=== PATIENT | female | born 1980 | race Caucasian/White ===

== ENCOUNTER → 2022-02-11 | Outpatient (CLI) | payer OTHER, SELFPAY ==
[2022-02-11 08:38] LABS: Absolute Lymphocyte Count 1.32 X10^3/uL (0.83-4.51); Absolute Neutrophil Count 7.2 X10^3/uL (2.0-7.7); Eosinophil# 0.89 X10^3/uL; Hematocrit 37.9 % (37-47); Hemoglobin 12.5 g/dL (12.0-15.0); Lymphocyte # 1.32 X10^3/ul (0.83-4.51); Lymphocyte % 13.4 % (19-41); Mean Corpuscular Hgb 27.4 pg (27.0-32.0); Mean Corpuscular Volume 83.1 fL (81-99); Mean Platelet Vol. 10.4 fl (6.2-12.0); Monocyte# 0.35 X10^3/uL; Monocyte% 3.5 % (0-10); NRBC Flagged by Analyzer 0 % (0-5); Neutrophil # 7.16 X10^3/uL (2.7-7.7); Neutrophil % 72.6 % (47-70); Platelet Count 354 K/mm3 (150-450); RBC Distribution Width CV 15.4 % (11.6-14.6); RBC Distribution Width SD 47.1 fl (35.1-43.9); Red Blood Count 4.56 M/mm3 (4.2-5.4); White Blood Count 9.9 K/mm3 (4.4-11.0)
[2022-02-18 08:10] LABS: Alternaria tenuis <0.10 kU/L (Class 0); Ash, White <0.10 kU/L (Class 0); Aspergillus fumigatus <0.10 kU/L (Class 0); Bermuda Grass <0.10 kU/L (Class 0); Birch <0.10 kU/L (Class 0); Black Walnut <0.10 kU/L (Class 0); Cat Hair / Dander,Stand <0.10 kU/L (Class 0); Cedar, Mountain <0.10 kU/L (Class 0); Cladosporium herbarum <0.10 kU/L (Class 0); Cockroach, American <0.10 kU/L (Class 0); Cottonwood <0.10 kU/L (Class 0); D farinae Mite <0.10 kU/L (Class 0); D pteronyssinus <0.10 kU/L (Class 0); Dog Epithelia <0.10 kU/L (Class 0); Elm, American White <0.10 kU/L (Class 0); Immunoglobulin E 149 IU/mL (6-495); Maple/Box Elder <0.10 kU/L (Class 0); Mulberry, White <0.10 kU/L (Class 0); Oak, White <0.10 kU/L (Class 0); Pecan <0.10 kU/L (Class 0); Penicillium Notatum <0.10 kU/L (Class 0); Pigweed, Rough <0.10 kU/L (Class 0); Ragweed, Short/Common <0.10 kU/L (Class 0); Russian Thistle <0.10 kU/L (Class 0); Sheep Sorrel <0.10 kU/L (Class 0); Sycamore, American <0.10 kU/L (Class 0); Timothy Grass <0.10 kU/L (Class 0)
[2022-02-18 08:25] LABS: Mouse Urine <0.10 kU/L (Class 0)
[2022-02-21 15:08] LABS: Aspirgillus flavus Negative (Neg:<1:1); Aspirgillus fumigatus Negative (Neg:<1:1); Aspirgillus niger Negative (Neg:<1:1); Cytoplasmic Ab (C-ANCA) <1:20 titer (Neg:<1:20)
[2022-02-22 08:37] LABS: Immunoglobulin E 162 IU/mL (6-495)
== END | disposition home or self-care (01) ==
PROVIDERS: PCP Nurse Practitioner; Referring Provider Internal Medicine Critical Care Medicine; Visit Provider Internal Medicine Critical Care Medicine
DX: J45.909 Unspecified asthma, uncomplicated (principal)
CPT/HCPCS: 36415; 82785; 85025; 86003; 86256; 86606

== ENCOUNTER → 2022-03-02 | Outpatient (CLI) | payer SELFPAY, OTHER ==
--- NOTE | 2022-03-03 08:15 | PFT ---
INTRODUCTION: The patient is a 41-year-old female that presents for pulmonary function studies secondary to a diagnosis of asthma. Respiratory therapy reported good patient effort. Bronchodilators were used during testing. INTERPRETATION: Forced expiration spirometry demonstrates the presence of a moderately severe large airways obstructive ventilatory defect. There is no significant response to aerosolized bronchodilators. Spirograms are of good quality but do not plateau indicating slow emptying of the lungs. Body plethysmography was performed and revealed a decreased TLC to 3.58 L, 77% of predicted, indicative of a mild restrictive ventilatory impairment. Diffusing capacity by single breath CO is within normal limits. IMPRESSION: Irreversible moderately severe large mixed ventilatory defect with preserved diffusing capacity.
== END | disposition home or self-care (01) ==
LOC: PSN 12:56
PROVIDERS: PCP Nurse Practitioner; Referring Provider Internal Medicine Critical Care Medicine; Visit Provider Internal Medicine Critical Care Medicine
DX: J45.909 Unspecified asthma, uncomplicated (principal)
CPT/HCPCS: 94060; 94726; 94729

== ENCOUNTER 2024-09-08 09:57 | Emergency (ER) | payer OTHER, SELFPAY ==
[2024-09-08 09:58] VITALS: BP 161/73; PULSE 103; RESP 18; TEMP 37.2; O2SAT 98; BMI 30.2
--- NOTE | 2024-09-08 10:13 | EX.ED.DYSGE1 ---
HPI History of Present Illness Chief Complaint: Hypertension Informant: patient Onset/Context/Timing Onset: Month(s) Context: Gradual Onset Timing: Continuous Worsened by: Nothing Relieved by: Nothing Narrative Narrative: Patient presents with elevated blood pressure that was noticed today. Patient states that 3 months ago her blood pressure was noted to be mildly elevated in the 150s. Patient states that when she was at her pulmonology appointment today her blood pressure was elevated into the 170s. Patient states she has had a recent cough but has not taken any [id number] decongestants. Patient states she did take her inhaler this morning at approximately 7:30 AM. (This was approximately 2-1/2 hours prior to arrival to the emergency department.) patient denies any chest pain or shortness of breath. Patient denies any nausea or vomiting. Patient does admit to a mild headache. [facility] Medical History (Updated 09/08/24 @ 11:[address] Jameson Simon, DO) Nasal polyps Diabetes Home Medications ?Medication ?Instructions ?Recorded ?Last Taken ?Type albuterol sulfate 2.5 mg/3 mL 2.5 mg (3 mL) inhalation Q4H PRN 02/11/22 Unknown Rx (0.083 %) solution for nebulization shortness of breath or wheezing #180 mL albuterol sulfate 90 mcg/actuation gm inhalation 02/11/22 Unknown History aerosol inhaler insulin lispro 100 unit/mL 25 - 35 unit subcut TID 02/11/22 Unknown History subcutaneous pen (Humalog KwikPen (U-100) Insulin) ipratropium 0.5 mg-albuterol 3 mg 3 ml continuous nebulization Q6H 02/11/22 Unknown History (2.5 mg base)/3 mL nebulization PRN soln albuterol sulfate 90 mcg/actuation 2 puff inhalation Q4H PRN 09/08/23 Unknown Rx aerosol inhaler shortness of breath or wheezing #8.5 grams budesonide-formoterol HFA 160 2 puff inhalation BID #10.2 grams 09/08/23 Unknown Rx mcg-4.5 mcg/actuation aerosol inhaler Allergy/AdvReac Type Severity Reaction Status Date / Time Penicillins Allergy Severe Anaphylaxis Verified 09/08/24 09:58 /Hives Family History Brother Diabetes Grandfather Asthma Surgical History (Updated 09/08/24 @ 10:[address] Jameson Simon DO) Hx of nasal polypectomy Social History Smoking Status: Never smoker Electronic Cigarette Use: not used alcohol intake: never substance use type: does not use ROS ROS ED Constitutional Constitutional ED: Denies chills or fever(s) Eyes Eyes: Denies blurry vision or change in vision ENT ENT ED: Reports sore throat; Denies rhinorrhea Cardiovascular Cardiovascular: Denies chest pain or palpitations Respiratory/Chest Respiratory/Chest: Reports cough; Denies dyspnea Gastrointestinal Gastrointestinal: Denies nausea or vomiting Genitourinary Genitourinary ED: Denies dysuria or hematuria Musculoskeletal Musculoskeletal: Denies back pain or neck pain Integumentary Denies abscess or rash Neurologic Neurologic: Reports headache(s); Denies weakness Allergic/Immunologic Allergic/Immunologic ED: Denies mouth swelling or urticaria EXAM Physical Exam Const Vital Signs: 09/08/24 09:58 09/08/24 09:58 09/08/24 11:30 Temperature 98.9 F Temperature Source Oral Pulse Rate 103 H 87 Respiratory Rate 18 18 Respiratory Pattern Normal Blood Pressure 161/73 H 163/62 H Blood Pressure Mean 102 95 Pulse Ox 98 95 Oxygen Delivery Method Room Air Room Air 09/08/24 11:41 Temperature 98.7 F Temperature Source Pulse Rate 89 Respiratory Rate 16 Respiratory Pattern Blood Pressure 152/96 H Blood Pressure Mean 114 Pulse Ox 99 Oxygen Delivery Method Positive well nourished and well developed General Appearance ED: well developed and NAD HEENT Reports moist mucous membranes Neck supple and no JVD Resp normal respiratory effort and clear to auscultation bilaterally Cardio regular rate and regular rhythm GI non-tender and non-distended Palpation: soft Neuro oriented x3, CN's II-XII intact bilaterally and no sensory deficits noted Sensorium / Orientation: alert Motor Exam: strength 5/5 throughout Psych mental status grossly normal MDM MDM MDM Narrative Medical decision making narrative: Differential diagnosis includes hypertension, hypertensive urgency, hypertensive emergency, medication side effect, cardiac dysrhythmia, cardiac ischemia, electrolyte abnormality, and anxiety. EKG will be obtained to assess for cardiac dysrhythmia and cardiac ischemia. Chest x-ray will be obtained to assess for pneumonia and widened mediastinum. CBC will be obtained to assess for leukocytosis and anemia. Basic metabolic profile will be obtained to assess for electrolyte abnormality and renal function. High-sensitivity troponin will be obtained to assess for cardiac ischemia. Lab Data Attestation: I reviewed the patient's lab results. Lab results narrative: CBC was reviewed and was within normal limits. Basic metabolic profile was reviewed. Glucose was elevated at 280. The remainder is within normal limits. High-sensitivity troponin was reviewed and was less than 3. Labs: Laboratory Results - last 24 hr 09/08/24 10:45 WBC 8.0 RBC 4.79 Hgb 13.3 Hct 40.3 MCV 84.1 MCH 27.8 MCHC 33.0 RDW Std Deviation 42.4 RDW Coeff of Lonny 13.8 Plt Count 332 MPV 11.2 Immature Gran % (Auto) 0.400 Neut % (Auto) 71.6 H Lymph % (Auto) 11.5 L [place] % (Auto) 4.9 Eos % (Auto) 10.5 H Baso % (Auto) 1.1 H Absolute Neuts (auto) 5.8 Absolute Lymphs (auto) 0.92 Nucleated RBC % 0 Sodium 135 L Potassium 3.5 Chloride 105 Carbon Dioxide 24.0 Anion Gap 6 BUN 6 L Creatinine 0.83 Estim Creat Clear Calc 80.31 Est GFR (MDRD) Af Amer 95 Est GFR (MDRD) Non-Af 78 BUN/Creatinine Ratio 7.2 L Glucose 280 H Calcium 9.0 Troponin I High Sens < 3 L Radiography Chest X-Ray - ED: 2 View, Read by ED Physician, Read by Radiologist and No Acute Disease Diagnostic Testing: Clinical Impression(s) from Imaging Studies Chest X-Ray 09/08/24 10:58 IMPRESSION: Normal x-ray examination of the chest. Electronically Signed: Drew Jain MD at 11:09 EST , PA and lateral chest x-ray was obtained. There are 2 views. On my independent interpretation, lung zuniga are clear. There is normal cardiac silhouette. Bony thorax is normal. There is no acute process noted. Radiologist also interpreted the x-ray and agrees. EKG Initial EKG: Attestation: I personally reviewed and interpreted this EKG as follows: Interpretation: Sinus Rhythm (92) and No Acute Injury Pattern Comments: EKG was obtained. On my independent interpretation, it showed a normal sinus rhythm with a rate of 92. TN interval, QRS interval, and QTc intervals were all normal. [place] was normal. There are no acute ST or T wave changes. Prior EKG tracings: not available for review Prior: No Prior Treatment and Re-Evaluation :: Patient's blood pressure appears to be improving. Therefore, I will hold off on any antihypertensives at this time. Patient was advised of her findings. Patient advised that she does not have a hypertensive urgency or hypertensive emergency at this time. She does have mildly elevated blood pressure. Repeat blood pressure was 163/86. Patient was instructed to keep a log of her blood pressures at home. Patient was instructed to follow-up with her primary care physician in 3 to 5 days. Patient was instructed to return if worse in any way. Patient understood and was agreeable with the plan. All questions were answered. Discharge Plan Triage Chief Complaint: Hypertension ED Provider: Jameson Simon Dx/Rx/DC Orders Clinical Impression: Hypertension, Diabetes Instructions: ED Hypertension, To Be Confirmed Prescriptions: No Action albuterol sulfate 90 mcg/actuation HFA aerosol inhaler inhalation Patient Comments: Inhale TWO puffs every FOUR hours NEEDED for SHORTNESS OF BREATH ipratropium-albuterol 0.5 mg-3 mg(2.5 mg base)/3 mL solution for nebulization 3 ml continuous nebulization Q6H PRN Patient Comments: inhale ONE vial PER nebulizer FOUR TIMES DAILY insulin lispro [Humalog KwikPen Insulin] 100 unit/mL insulin pen 25 - 35 unit subcut TID albuterol sulfate 2.5 mg /3 mL (0.083 %) solution for nebulization 2.5 mg inhalation Q4H PRN (Reason: shortness of breath or wheezing) Qty: 180 3RF budesonide-formoterol 160-4.5 mcg/actuation HFA aerosol inhaler 2 puff inhalation BID Qty: 10.2 11RF albuterol sulfate 90 mcg/actuation HFA aerosol inhaler 2 puff inhalation Q4H PRN (Reason: shortness of breath or wheezing) Qty: 8.5 6RF Rx Instructions: administer with spacer Primary Care Provider: Siobhan Juarez NP Referrals: Siobhan Juarez NP, [facility]IOLOG[facility] [Primary Care Provider] - 3-5 Days Activity Restrictions/Additional Instructions: Take your blood pressure twice daily (in the morning and in the evening). Keep a log of these blood pressures and take them to your primary care physician. If your blood pressures remain elevated, you may need to be started on antihypertensive medication. Print Language: Swedish Disposition Disposition: Home, Self Care Discharge Date/Time: 09/08/24 11:42
--- NOTE | 2024-09-08 10:33 | EKG12_ITS ---
Test Reason : BACK PAIN Blood Pressure : */* mmHG Vent. Rate : 92 BPM Atrial Rate : 92 BPM P-R Int : 132 ms QRS Dur : 74 ms QT Int : 354 ms P-R-T Axes : 62 24 52 degrees QTcB Int : 437 ms Normal sinus rhythm Normal ECG Confirmed by ANDREY FU, DANNA ([id number]), book or script editor CAMILO MCCARTHY ([id number]) on 09/11/2024 6:34:28 AM Referred By: Confirmed By: DANNA BALDERAS MD
[2024-09-08 10:58] LABS: Absolute Lymphocyte Count 0.92 X10^3/uL (0.83-4.51); Absolute Neutrophil Count 5.8 X10^3/uL (2.0-7.7); Basophil# 0.09 X10^3/uL; Basophil% 1.1 % (0-1); Eosinophil# 0.84 X10^3/uL; Eosinophils% 10.5 % (0-5); Hematocrit 40.3 % (37-47); Hemoglobin 13.3 g/dL (12.0-15.0); Lymphocyte # 0.92 X10^3/ul (0.83-4.51); Lymphocyte % 11.5 % (19-41); Mean Corpuscular Hgb 27.8 pg (27.0-32.0); Mean Corpuscular Volume 84.1 fL (81-99); Mean Platelet Vol. 11.2 fl (6.2-12.0); Monocyte# 0.39 X10^3/uL; Monocyte% 4.9 % (0-10); NRBC Flagged by Analyzer 0 % (0-5); Neutrophil # 5.76 X10^3/uL (2.7-7.7); Neutrophil % 71.6 % (47-70); Platelet Count 332 K/mm3 (150-450); RBC Distribution Width CV 13.8 % (11.6-14.6); RBC Distribution Width SD 42.4 fl (35.1-43.9); Red Blood Count 4.79 M/mm3 (4.2-5.4)
--- NOTE | 2024-09-08 10:58 | RAD_ITS ---
STUDY: X-RAY CHEST REASON FOR EXAM: Female, 44 years old. Hypertension TECHNIQUE: PA and lateral views of the chest. COMPARISON: None. FINDINGS: The lungs are clear and expanded. There is no demonstrated pleural abnormality. Normal size heart. Normal mediastinum and jack. Normal visualized pulmonary arteries. Normal visualized aortic arch and descending thoracic aorta. Normal visualized thoracic spine. Normal visualized ribs, clavicles, and shoulders. There is no demonstrated abnormality of the visualized soft tissue structures of the upper abdomen. RAD/Chest PA and Lateral IMPRESSION: Normal x-ray examination of the chest. Electronically Signed: Drew Jain MD at 11:09 [facility] ,
[2024-09-08 11:17] LABS: Anion Gap 6 (5-15); BUN 6 mg/dL (7-18); BUN/Creat Ratio 7.2 RATIO (10-20); Chloride 105 mmol/L (98-107); Creatinine, Serum 0.83 mg/dL (0.55-1.02); EST Glomerular Filtration Rate 78 mL/min (>60); Est Glom Filt Rate - Afr Amer 95 mL/min (>60); Estimated Creatinine Clearance 80.31 ml/min; Glucose 280 mg/dL (74-106); Potassium 3.5 mmol/L (3.5-5.1); Sodium Level 135 mmol/L (136-145); Troponin-I HS < 3 pg/mL (3.0-54.0)
[2024-09-08 11:30] VITALS: BP 163/62; PULSE 87; RESP 18; O2SAT 95
[2024-09-08 11:41] VITALS: BP 152/96; PULSE 89; RESP 16; TEMP 37.1; O2SAT 99
== END 2024-09-08 11:42 | disposition home or self-care (01) ==
PROVIDERS: Emergency Provider Emergency Medicine; PCP Nurse Practitioner; Visit Provider Emergency Medicine
DX: I10 Essential (primary) hypertension (principal); E11.65 Type 2 diabetes mellitus with hyperglycemia; Z79.4 Long term (current) use of insulin
CPT/HCPCS: 71046; 80048; 84484; 85025; 93005; 99284